=== PATIENT | male | born 1945 | race Two or more races ===

== ENCOUNTER 2020-11-23 09:31 | Inpatient (IN) | payer MEDICARE, OTHER ==
[~2020-11-23] VITALS: Ht 180.3 cm; Wt 84.7 kg
[2020-11-23] MEDS ORDERED: LORazepam 2MG/ML-1ML VIAL IM ONE (09:45)
[2020-11-23] MEDS ORDERED: HALOPERIDOL LACTATE 5 MG/ML INJ VIAL IM ONE ×2 (10:15→16:00)
[2020-11-23] MEDS ORDERED: diphenhdrAMINE HCL 50 MG/1 ML VL IM ONE ×2 (10:15→16:00)
[2020-11-23] MEDS ORDERED: SODIUM CHLORIDE 0.9% 1,000 ML IVB ONE (10:30)
[2020-11-23 11:18] LABS: Basophils # (auto) 0 10 ^3/uL (0-0.2); Basophils % (auto) 0.3 % (0.0-2.0); Eosinophils # (auto) 0 10 ^3/uL (0-0.8); Eosinophils % (auto) 0.4 % (0.0-7.0); Hematocrit 41.8 % (41.0-53.0); Hemoglobin 14.5 g/dL (13.5-17.5); Lymphocytes # (auto) 1.4 10 ^3/uL (0.4-5.4); Lymphocytes % (auto) 12.7 % (10.0-50.0); Mean Corpuscular Hemoglobin 32.4 pg (28.0-32.0); Mean Corpuscular Hgb Conc. 34.8 g/dL (32.0-36.0); Mean Corpuscular Volume 93.2 fL (80.0-100.0); Monocytes # (auto) 0.7 10 ^3/uL (0-1.3); Monocytes % (auto) 6.4 % (0.0-12.0); Neutrophils # (auto) 8.5 10 ^3/uL (1.6-8.6); Neutrophils % (auto) 80.2 % (37.0-80.0); Red Blood Cells 4.48 10^6/uL (4.5-5.90); Red Cell Distribution Width 13.9 % (11.8-14.3); White Blood Cell 10.6 10^3/uL (4.4-10.8)
[2020-11-23 11:28] LABS: Urine Bacteria NONE SEEN /hpf (None Seen); Urine Blood Negative /uL (Negative); Urine Hyaline Cast FEW /lpf (0 - 2); Urine Specific Gravity 1.008 (1.001-1.035); Urine WBC 2 /hpf (0 - 3)
[2020-11-23] MEDS ORDERED: LORazepam 2MG/ML-1ML VIAL IV ONE ×4 (11:30→20:00)
[2020-11-23 11:34] LABS: Albumin 3.3 g/dL (3.4-5.0); Anion Gap 9 (5-15); Blood Urea Nitrogen 8 mg/dL (7-18); Carbon Dioxide 20 mmol/L (21-32); Chloride 111 mmol/L (98-107); Glucose 91 mg/dL (74-106); Magnesium 2.3 mg/dL (1.6-2.6); Potassium 4.2 mmol/L (3.5-5.1); Sodium 140 mmol/L (136-145)
[2020-11-23 11:38] LABS: Amphetamine Screen, Urine NEGATIVE (NEGATIVE); Barbiturate Scree,Urine NEGATIVE (NEGATIVE); Benzodiazephine Screen, Urine NEGATIVE (NEGATIVE); Cannabinoid Screen, Urine NEGATIVE (NEGATIVE); Cocaine Screen, Urine NEGATIVE (NEGATIVE); Opiate Scree,Urine NEGATIVE (NEGATIVE); Phencyclidine Screen, Urine NEGATIVE (NEGATIVE)
[2020-11-23 11:40] LABS: Alanine Aminotransferase 25 U/L (16-61); Alkaline Phosphatase 95 U/L (45-117); Aspartate Aminotransferase 31 U/L (15-37); BUN/Creatinine Ratio 7.2; Bilirubin, Total 0.3 mg/dL (0.2-1.0); GFR African American 84 mL/min; GFR Non-African American 69 mL/min
[2020-11-23 11:55] LABS: Lactic Acid w/Reflex 4.7 mmol/L (0.4-2.0)
[2020-11-23] MEDS ORDERED: FOLIC ACID 1 MG, MULTIPLE VITAMIN 10 ML, MAGNESIUM SULF SDV 50% 8 MEQ, THIAMINE INJ 100... INJ SCH ×5 (12:00)
[2020-11-23] MEDS ORDERED: LORazepam MDV 2MG/ML 50 MG in SODIUM CHL 0.9% 25 ML IV ONE ×2 (18:00→22:00)
[2020-11-23] MEDS ORDERED: LORazepam 2MG/ML-1ML VIAL ONE ×2 (18:17→19:29)
[2020-11-23] MEDS ORDERED: cefTRIAXone 1GM/50ML D5W 50 ML IV ONE (18:30)
[2020-11-23] MEDS ORDERED: diazePAM 5 MG TAB PO ONE ×2 (20:30→20:45)
[2020-11-23] MEDS: LORazepam 2MG/ML-1ML VIAL IV SCH ×2 (20:49→22:00)
[2020-11-23] MEDS: ETOMIDATE (2MG/ML) 20ML VIAL IV PRN ×2 (21:26→21:35)
[2020-11-23] MEDS ORDERED: ROCURONIUM 10MG/ML 10ML VIAL IV ONE ×2 (21:56→22:00)
[2020-11-23] MEDS ORDERED: ETOMIDATE (2MG/ML) 20ML VIAL IV ONE ×2 (21:56→22:00)
[2020-11-23 22:51] VITALS: BP 144/93
[2020-11-23] MEDS ORDERED: ONDANSETRON HCL 4 MG/2 ML VIAL IV PRN (23:00)
[2020-11-23] MEDS ORDERED: SODIUM CHLORIDE 0.9% 1,000 ML IV SCH (23:00)
[2020-11-23] MEDS ORDERED: MORPHINE SULF INJ 2 MG/ML SYRINGE 1ML IV PRN (23:00)
[2020-11-23] MEDS ORDERED: DexAMETHasone SOD PHOS 10MG/1ML VIAL INJ IV ONE (23:00)
[2020-11-23] MEDS ORDERED: NITROGLYCERIN 0.4 MG SL TAB SL PRN (23:00)
[2020-11-23] MEDS ORDERED: AZITHROMYCIN 500MG/ 250ML 250 ML IV ONE (23:00)
[2020-11-23] MEDS ORDERED: PROPOFOL 100 ML IV ONE (23:08)
[2020-11-23] MEDS: PROPOFOL 100 ML IV SCH (23:12)
[2020-11-23 23:13] VITALS: BP 144/93
[2020-11-23 23:49] VITALS: BP 116/93
[2020-11-24] VITALS (89 sets, daily range): BP systolic 54–286; BP diastolic 28–118
[2020-11-24] MEDS ORDERED: ENOXAPARIN SOD 100 MG/1 ML SYRINGE SC ONE (03:45)
[2020-11-24] MEDS ORDERED: ALBUMIN 5% 250 ML IV ONE (03:45)
[2020-11-24] MEDS ORDERED: fentaNYL Drip 2500mCg/250mlNS 250 ML IV ONE (05:17)
[2020-11-24] MEDS ORDERED: SODIUM BICARBONATE 8.4 % INJ 50ML VIAL IV ONE (05:30)
[2020-11-24] MEDS: fentaNYL Drip 2500mCg/250mlNS 250 ML IV SCH (06:14)
[2020-11-24] MEDS ORDERED: MIDAZOLAM DRIP 50 mg/50mL 50 ML IV ONE (06:25)
[2020-11-24] MEDS: MIDAZOLAM DRIP 50 mg/50mL 50 ML IV SCH (06:41)
[2020-11-24] MEDS: LABETALOL HCL 5 MG/ML 4ML SYRINGE IV PRN (08:13)
[2020-11-24 08:30] LABS: Hemoglobin 15.4 g/dL (13.5-17.5); Mean Corpuscular Hemoglobin 31.4 pg (28.0-32.0); Mean Corpuscular Hgb Conc. 32.8 g/dL (32.0-36.0); Mean Corpuscular Volume 95.7 fL (80.0-100.0); Red Blood Cells 4.91 10^6/uL (4.5-5.90); Red Cell Distribution Width 14.4 % (11.8-14.3); White Blood Cell 20.7 10^3/uL (4.4-10.8)
[2020-11-24 08:36] LABS: Basophils % (manual) 0 (0.0-2.0); Blast Cells 0; Eosinophils % (manual) 0 (0-7); Metamyelocytes % 0; Myelocytes % 0; Promyelocytes % 0; Reactive Lymphocytes 0
[2020-11-24 08:41] LABS: Alanine Aminotransferase 40 U/L (16-61); Albumin 2.7 g/dL (3.4-5.0); Anion Gap 9 (5-15); Aspartate Aminotransferase 109 U/L (15-37); Blood Urea Nitrogen 16 mg/dL (7-18); Calcium 7.3 mg/dL (8.5-10.1); Carbon Dioxide 18 mmol/L (21-32); Chloride 115 mmol/L (98-107); GFR African American 49 mL/min; GFR Non-African American 40 mL/min; Glucose 161 mg/dL (74-106); Potassium 4.7 mmol/L (3.5-5.1); Sodium 142 mmol/L (136-145)
[2020-11-24 08:44] LABS: Alkaline Phosphatase 108 U/L (45-117); Bilirubin, Total 0.7 mg/dL (0.2-1.0); Total Protein 6.6 g/dL (6.4-8.2)
[2020-11-24 09:02] LABS: Band Neutrophils % (manual) 5; Lymphocytes % (manual) 8 (10.0-50.0); Monocytes % (manual) 9 (0-12)
[2020-11-24] MEDS ORDERED: DexAMETHasone SOD PHOS 10MG/1ML VIAL INJ IV SCH (10:00)
[2020-11-24] MEDS: PHENYLEPHRINE INJ 40 MG in SODIUM CHL 0.9% 246 ML IV SCH ×2 (10:20→15:06)
[2020-11-24] MEDS: ASPirin 81 mg TAB PO SCH (10:56)
[2020-11-24] MEDS: ENOXAPARIN SOD 40 MG/0.4 ML SYRINGE SC SCH (10:56)
[2020-11-24] MEDS: cefTRIAXone 1GM/50ML D5W 50 ML IV SCH (10:56)
[2020-11-24] MEDS: PANTOPRAZOLE 40 MG/10 ML VIAL INJ IV SCH (10:57)
[2020-11-24 12:03] LABS: Thyroid Stimulating Hormone 1.23 uIU/mL (0.358-3.74)
[2020-11-24] MEDS: SODIUM BICARBONATE 50ML VIAL 150 ML in D5W 5% 1,000 ML IV SCH (13:26)
[2020-11-24] MEDS: PROPOFOL 100 ML IV SCH ×2 (15:05→22:21)
[2020-11-24] MEDS: FOLIC ACID 1 MG, MULTIPLE VITAMIN 10 ML, MAGNESIUM SULF SDV 50% 8 MEQ, THIAMINE INJ 100... INJ SCH ×5 (16:00)
[2020-11-24 16:21] LABS: Protein, Urine 101.4 mg/dL (0.0-11.9)
[2020-11-24 16:29] LABS: Lactic Acid w/Reflex 3.5 mmol/L (0.4-2.0)
[2020-11-24] MEDS ORDERED: OPTISON 3ml Vial for INJ IV ONE (18:18)
[2020-11-24] MEDS: PHENYLEPHRINE INJ 80 MG in SODIUM CHL 0.9% 242 ML IV SCH (19:30)
[2020-11-24] MEDS: AZITHROMYCIN 500MG/ 250ML 250 ML IV SCH (22:10)
[2020-11-24] MEDS: MUPIROCIN 2% OINT 15gm or 22gm EACHNOSTRI SCH (22:10)
[2020-11-25] VITALS (108 sets, daily range): BP systolic 88–174; BP diastolic 58–126
[2020-11-25] MEDS: ACETAMINOPHEN 325 MG TAB PO PRN (01:53)
[2020-11-25] MEDS: SODIUM BICARBONATE 50ML VIAL 150 ML in D5W 5% 1,000 ML IV SCH ×2 (01:59→09:30)
[2020-11-25 04:03] LABS: Basophils # (auto) 0.1 10 ^3/uL (0-0.2); Basophils % (auto) 0.3 % (0.0-2.0); Eosinophils # (auto) 0 10 ^3/uL (0-0.8); Hematocrit 39.4 % (41.0-53.0); Hemoglobin 13.6 g/dL (13.5-17.5); Lymphocytes # (auto) 1.1 10 ^3/uL (0.4-5.4); Lymphocytes % (auto) 5.8 % (10.0-50.0); Mean Corpuscular Hemoglobin 31.9 pg (28.0-32.0); Mean Corpuscular Hgb Conc. 34.4 g/dL (32.0-36.0); Mean Corpuscular Volume 92.9 fL (80.0-100.0); Monocytes # (auto) 1.7 10 ^3/uL (0-1.3); Monocytes % (auto) 9.2 % (0.0-12.0); Neutrophils # (auto) 15.6 10 ^3/uL (1.6-8.6); Neutrophils % (auto) 84.7 % (37.0-80.0); Red Blood Cells 4.25 10^6/uL (4.5-5.90); Red Cell Distribution Width 14.2 % (11.8-14.3); White Blood Cell 18.4 10^3/uL (4.4-10.8)
[2020-11-25 04:21] LABS: Potassium 4.3 mmol/L (3.5-5.1)
[2020-11-25 04:27] LABS: Albumin 2.6 g/dL (3.4-5.0); Bilirubin, Total 0.5 mg/dL (0.2-1.0); Magnesium 2.8 mg/dL (1.6-2.6); Phosphorus 2.4 mg/dL (2.5-4.90); Total Protein 6.1 g/dL (6.4-8.2)
[2020-11-25] MEDS: PHENYLEPHRINE INJ 80 MG in SODIUM CHL 0.9% 242 ML IV SCH (05:00)
[2020-11-25] MEDS: fentaNYL Drip 2500mCg/250mlNS 250 ML IV SCH ×2 (05:45→22:24)
[2020-11-25] MEDS: PROPOFOL 100 ML IV SCH ×2 (06:30→22:23)
[2020-11-25] MEDS: MIDAZOLAM DRIP 50 mg/50mL 50 ML IV SCH (06:30)
[2020-11-25] MEDS: cefTRIAXone 1GM/50ML D5W 50 ML IV SCH (08:33)
[2020-11-25] MEDS: PANTOPRAZOLE 40 MG/10 ML VIAL INJ IV SCH (10:35)
[2020-11-25] MEDS: MUPIROCIN 2% OINT 15gm or 22gm EACHNOSTRI SCH ×2 (10:35→22:21)
[2020-11-25] MEDS: ENOXAPARIN SOD 40 MG/0.4 ML SYRINGE SC SCH (10:35)
[2020-11-25] MEDS: ASPirin 81 mg TAB PO SCH (10:35)
[2020-11-25] MEDS: FOLIC ACID 1 MG, MULTIPLE VITAMIN 10 ML, MAGNESIUM SULF SDV 50% 8 MEQ, THIAMINE INJ 100... INJ SCH ×5 (12:07)
[2020-11-25 12:20] LABS: Lactic Acid w/Reflex 2.3 mmol/L (0.4-2.0)
[2020-11-25] MEDS: NOREPINEPHRINE 8 MG/250ML KIT 250 ML IV SCH ×2 (15:55→22:22)
[2020-11-25] MEDS: AZITHROMYCIN 500MG/ 250ML 250 ML IV SCH (22:21)
[2020-11-26] VITALS (104 sets, daily range): BP systolic 85–186; BP diastolic 53–126
[2020-11-26] MEDS: PROPOFOL 100 ML IV SCH ×3 (01:34→19:05)
[2020-11-26 04:55] LABS: Albumin 2.3 g/dL (3.4-5.0); Potassium 4.1 mmol/L (3.5-5.1)
[2020-11-26 05:07] LABS: Cholesterol 117 mg/dL (< 200); HDL Cholesterol 54 mg/dL (40-59); LDL Cholesterol 51 mg/dL (< 100); Triglycerides 117 mg/dL (< 150)
[2020-11-26 05:09] LABS: BUN/Creatinine Ratio 23.5; Bilirubin, Total 0.4 mg/dL (0.2-1.0); Total Protein 5.8 g/dL (6.4-8.2)
[2020-11-26] MEDS: MIDAZOLAM DRIP 50 mg/50mL 50 ML IV SCH (06:30)
[2020-11-26] MEDS: cefTRIAXone 1GM/50ML D5W 50 ML IV SCH (09:03)
[2020-11-26] MEDS: ASPirin 81 mg TAB PO SCH (10:16)
[2020-11-26] MEDS: ENOXAPARIN SOD 40 MG/0.4 ML SYRINGE SC SCH (10:17)
[2020-11-26] MEDS: MUPIROCIN 2% OINT 15gm or 22gm EACHNOSTRI SCH ×2 (10:17→22:07)
[2020-11-26] MEDS: PANTOPRAZOLE 40 MG/10 ML VIAL INJ IV SCH (10:17)
[2020-11-26] MEDS: FOLIC ACID 1 MG, MULTIPLE VITAMIN 10 ML, MAGNESIUM SULF SDV 50% 8 MEQ, THIAMINE INJ 100... INJ SCH ×5 (12:53)
[2020-11-26] MEDS: SOD CHL 0.45% 1,000 ML IV SCH (13:08)
[2020-11-26] MEDS: LINEZOLID 600MG/300ML 300 ML IV SCH ×2 (13:08→22:08)
[2020-11-26] MEDS: PHENYLEPHRINE INJ 80 MG in SODIUM CHL 0.9% 242 ML IV SCH (15:45)
[2020-11-26] MEDS: MEROPENEM 1GM IVPB 100 ML IV SCH ×2 (16:44→22:07)
[2020-11-26] MEDS ORDERED: HYDR-4924 PO (17:49)
[2020-11-26] MEDS ORDERED: GABA-339 PO (17:49)
[2020-11-26] MEDS ORDERED: BUPR100T14 PO (17:49)
[2020-11-26] MEDS ORDERED: MELA3TAB27 PO (17:49)
[2020-11-26] MEDS ORDERED: CHOL1TAB30 PO (17:49)
[2020-11-26] MEDS ORDERED: TRAZ100T3 PO (17:49)
[2020-11-26] MEDS: AZITHROMYCIN 500MG/ 250ML 250 ML IV SCH (18:47)
[2020-11-26] MEDS: chlordiazePOXIDE HCL 25 MG CAP PO PRN (20:27)
[2020-11-26] MEDS: fentaNYL Drip 2500mCg/250mlNS 250 ML IV SCH (22:08)
[2020-11-27] VITALS (100 sets, daily range): BP systolic 68–204; BP diastolic 34–127
[2020-11-27] MEDS: SOD CHL 0.45% 1,000 ML IV SCH (03:55)
[2020-11-27] MEDS: chlordiazePOXIDE HCL 25 MG CAP PO PRN ×3 (04:25→22:50)
[2020-11-27 04:36] LABS: Basophils # (auto) 0.1 10 ^3/uL (0-0.2); Basophils % (auto) 0.6 % (0.0-2.0); Eosinophils # (auto) 0 10 ^3/uL (0-0.8); Eosinophils % (auto) 0.4 % (0.0-7.0); Hematocrit 34.5 % (41.0-53.0); Hemoglobin 11.8 g/dL (13.5-17.5); Lymphocytes # (auto) 1.4 10 ^3/uL (0.4-5.4); Lymphocytes % (auto) 15.5 % (10.0-50.0); Mean Corpuscular Hemoglobin 31.7 pg (28.0-32.0); Mean Corpuscular Hgb Conc. 34.2 g/dL (32.0-36.0); Mean Corpuscular Volume 92.9 fL (80.0-100.0); Monocytes # (auto) 0.8 10 ^3/uL (0-1.3); Monocytes % (auto) 8.4 % (0.0-12.0); Neutrophils % (auto) 75.1 % (37.0-80.0); Red Blood Cells 3.71 10^6/uL (4.5-5.90); Red Cell Distribution Width 14.4 % (11.8-14.3); White Blood Cell 9.3 10^3/uL (4.4-10.8)
[2020-11-27 04:58] LABS: Potassium 3.7 mmol/L (3.5-5.1)
[2020-11-27 05:12] LABS: Albumin 2.2 g/dL (3.4-5.0); BUN/Creatinine Ratio 22.7; Bilirubin, Total 0.4 mg/dL (0.2-1.0); Calcium 7.1 mg/dL (8.5-10.1); Total Protein 5.4 g/dL (6.4-8.2)
[2020-11-27] MEDS: MEROPENEM 1GM IVPB 100 ML IV SCH ×2 (06:17→13:44)
[2020-11-27] MEDS: PROPOFOL 100 ML IV SCH ×4 (06:18→21:00)
[2020-11-27] MEDS: MIDAZOLAM DRIP 50 mg/50mL 50 ML IV SCH (06:30)
[2020-11-27] MEDS: ENOXAPARIN SOD 40 MG/0.4 ML SYRINGE SC SCH (10:04)
[2020-11-27] MEDS: PANTOPRAZOLE 40 MG/10 ML VIAL INJ IV SCH (10:04)
[2020-11-27] MEDS: ASPirin 81 mg TAB PO SCH (10:05)
[2020-11-27] MEDS: MUPIROCIN 2% OINT 15gm or 22gm EACHNOSTRI SCH (10:05)
[2020-11-27] MEDS: LINEZOLID 600MG/300ML 300 ML IV SCH (10:05)
[2020-11-27] MEDS: NOREPINEPHRINE 8 MG/250ML KIT 250 ML IV SCH ×2 (11:30→23:50)
[2020-11-27] MEDS: FOLIC ACID 1 MG, MULTIPLE VITAMIN 10 ML, MAGNESIUM SULF SDV 50% 8 MEQ, THIAMINE INJ 100... INJ SCH ×5 (12:21)
[2020-11-27] MEDS ORDERED: ENOXAPARIN SOD 30 MG/0.3 ML SYRINGE SC ONE (14:45)
[2020-11-27] MEDS: PHENYLEPHRINE INJ 80 MG in SODIUM CHL 0.9% 242 ML IV SCH (15:45)
[2020-11-27] MEDS: AZITHROMYCIN 500MG/ 250ML 250 ML IV SCH (17:28)
[2020-11-27] MEDS ORDERED: IOHEXOL 350 MG/ML 100ML IJ ONE (21:12)
[2020-11-27] MEDS: fentaNYL Drip 2500mCg/250mlNS 250 ML IV SCH (22:00)
[2020-11-27] MEDS: LABETALOL HCL 5 MG/ML 4ML SYRINGE IV PRN (23:00)
[2020-11-27] MEDS: ACETAMINOPHEN 325 MG TAB PO PRN (23:32)
[2020-11-28] VITALS (94 sets, daily range): BP systolic 71–204; BP diastolic 35–125
[2020-11-28] MEDS: MUPIROCIN 2% OINT 15gm or 22gm EACHNOSTRI SCH ×3 (00:23→22:00)
[2020-11-28] MEDS: SOD CHL 0.45% 1,000 ML IV SCH ×2 (00:23→13:16)
[2020-11-28] MEDS: MEROPENEM 1GM IVPB 100 ML IV SCH ×4 (00:24→21:30)
[2020-11-28] MEDS: LINEZOLID 600MG/300ML 300 ML IV SCH ×2 (00:24→10:28)
[2020-11-28] MEDS: ENOXAPARIN SOD 80 MG/0.8ML SYRINGE SC SCH ×2 (00:25→10:53)
[2020-11-28] MEDS: PROPOFOL 100 ML IV SCH ×3 (03:22→16:58)
[2020-11-28 06:19] LABS: Basophils # (auto) 0.1 10 ^3/uL (0-0.2); Basophils % (auto) 0.8 % (0.0-2.0); Eosinophils # (auto) 0.2 10 ^3/uL (0-0.8); Eosinophils % (auto) 2.3 % (0.0-7.0); Hematocrit 34.8 % (41.0-53.0); Hemoglobin 11.9 g/dL (13.5-17.5); Lymphocytes # (auto) 1.5 10 ^3/uL (0.4-5.4); Lymphocytes % (auto) 17.8 % (10.0-50.0); Mean Corpuscular Hemoglobin 31.7 pg (28.0-32.0); Mean Corpuscular Hgb Conc. 34.3 g/dL (32.0-36.0); Mean Corpuscular Volume 92.2 fL (80.0-100.0); Monocytes # (auto) 0.8 10 ^3/uL (0-1.3); Monocytes % (auto) 9.6 % (0.0-12.0); Neutrophils % (auto) 69.5 % (37.0-80.0); Nucleated Red Blood Cells % 0.1 %; Red Blood Cells 3.77 10^6/uL (4.5-5.90); White Blood Cell 8.7 10^3/uL (4.4-10.8)
[2020-11-28 06:41] LABS: Potassium 3.4 mmol/L (3.5-5.1)
[2020-11-28 06:57] LABS: BUN/Creatinine Ratio 18.4; Bilirubin, Total 0.4 mg/dL (0.2-1.0); Calcium 7.4 mg/dL (8.5-10.1); Total Protein 5.3 g/dL (6.4-8.2)
[2020-11-28] MEDS: LABETALOL HCL 5 MG/ML 4ML SYRINGE IV PRN (10:23)
[2020-11-28] MEDS: chlordiazePOXIDE HCL 25 MG CAP PO PRN ×2 (10:24→16:59)
[2020-11-28] MEDS: PANTOPRAZOLE 40 MG/10 ML VIAL INJ IV SCH (10:24)
[2020-11-28] MEDS ORDERED: POTASSIUM CHLORIDE 20 MEQ, LIDOCAINE 1% (LOCAL ANESTH.) 2 ML in SODIUM CHL 0.9% 100 ML IV ONE (10:45)
[2020-11-28] MEDS: MIDAZOLAM DRIP 50 mg/50mL 50 ML IV SCH (10:46)
[2020-11-28] MEDS: ASPirin 81 mg TAB PO SCH (10:53)
[2020-11-28] MEDS: FOLIC ACID 1 MG, MULTIPLE VITAMIN 10 ML, MAGNESIUM SULF SDV 50% 8 MEQ, THIAMINE INJ 100... INJ SCH ×5 (12:22)
[2020-11-28] MEDS: NOREPINEPHRINE 8 MG/250ML KIT 250 ML IV SCH (13:00)
[2020-11-28] MEDS: PHENYLEPHRINE INJ 80 MG in SODIUM CHL 0.9% 242 ML IV SCH (13:15)
[2020-11-28] MEDS: AZITHROMYCIN 500MG/ 250ML 250 ML IV SCH (17:21)
[2020-11-29] VITALS (94 sets, daily range): BP systolic 77–209; BP diastolic 36–123
[2020-11-29] MEDS: LINEZOLID 600MG/300ML 300 ML IV SCH ×2 (00:41→09:34)
[2020-11-29] MEDS: ENOXAPARIN SOD 80 MG/0.8ML SYRINGE SC SCH ×3 (00:42→21:58)
[2020-11-29] MEDS: SOD CHL 0.45% 1,000 ML IV SCH (06:06)
[2020-11-29] MEDS: MEROPENEM 1GM IVPB 100 ML IV SCH ×3 (06:07→21:58)
[2020-11-29 07:38] LABS: Basophils # (auto) 0 10 ^3/uL (0-0.2); Basophils % (auto) 0.3 % (0.0-2.0); Eosinophils # (auto) 0.2 10 ^3/uL (0-0.8); Eosinophils % (auto) 2.1 % (0.0-7.0); Hematocrit 43.1 % (41.0-53.0); Hemoglobin 14.7 g/dL (13.5-17.5); Lymphocytes % (auto) 11.8 % (10.0-50.0); Mean Corpuscular Hemoglobin 31.6 pg (28.0-32.0); Monocytes # (auto) 0.9 10 ^3/uL (0-1.3); Monocytes % (auto) 10.1 % (0.0-12.0); Neutrophils # (auto) 6.6 10 ^3/uL (1.6-8.6); Neutrophils % (auto) 75.7 % (37.0-80.0); Nucleated Red Blood Cells % 0.3 %; Red Blood Cells 4.64 10^6/uL (4.5-5.90); Red Cell Distribution Width 14.1 % (11.8-14.3); White Blood Cell 8.7 10^3/uL (4.4-10.8)
[2020-11-29] MEDS: MIDAZOLAM DRIP 50 mg/50mL 50 ML IV SCH (09:29)
[2020-11-29] MEDS: PANTOPRAZOLE 40 MG/10 ML VIAL INJ IV SCH (09:34)
[2020-11-29] MEDS: ASPirin 81 mg TAB PO SCH (09:34)
[2020-11-29] MEDS: PROPOFOL 100 ML IV SCH (09:34)
[2020-11-29] MEDS: chlordiazePOXIDE HCL 25 MG CAP PO PRN (09:35)
[2020-11-29] MEDS: fentaNYL Drip 2500mCg/250mlNS 250 ML IV SCH (09:41)
[2020-11-29 10:17] LABS: Albumin 1.9 g/dL (3.4-5.0); Magnesium 2.4 mg/dL (1.6-2.6); Potassium 3.7 mmol/L (3.5-5.1)
[2020-11-29 10:21] LABS: BUN/Creatinine Ratio 17.6; Bilirubin, Total 0.5 mg/dL (0.2-1.0); Total Protein 5.3 g/dL (6.4-8.2)
[2020-11-29] MEDS: MUPIROCIN 2% OINT 15gm or 22gm EACHNOSTRI SCH (10:27)
[2020-11-29] MEDS ORDERED: ALBUMIN 25% 100 ML IV ONE (10:45)
[2020-11-29] MEDS ORDERED: FUROSEMIDE 40 MG/4 ML VIAL IV ONE (10:45)
[2020-11-29] MEDS: FOLIC ACID 1 MG, MULTIPLE VITAMIN 10 ML, MAGNESIUM SULF SDV 50% 8 MEQ, THIAMINE INJ 100... INJ SCH ×5 (12:00)
[2020-11-29] MEDS ORDERED: hydrALAZINE HCL 20 MG/ML VL IV PRN (12:00)
[2020-11-29] MEDS: PHENYLEPHRINE INJ 80 MG in SODIUM CHL 0.9% 242 ML IV SCH (13:59)
[2020-11-29] MEDS: DOPamine 1600MCG/ML D5W 250 ML IV SCH (15:15)
[2020-11-29] MEDS: AZITHROMYCIN 500MG/ 250ML 250 ML IV SCH (17:51)
[2020-11-30] VITALS (87 sets, daily range): BP systolic 84–178; BP diastolic 36–107
[2020-11-30] MEDS: LINEZOLID 600MG/300ML 300 ML IV SCH ×2 (01:15→10:28)
[2020-11-30 04:55] LABS: Albumin 2.2 g/dL (3.4-5.0); Calcium 8.2 mg/dL (8.5-10.1); Potassium 3.5 mmol/L (3.5-5.1)
[2020-11-30 04:58] LABS: BUN/Creatinine Ratio 20.6; Bilirubin, Total 0.4 mg/dL (0.2-1.0); Total Protein 5.8 g/dL (6.4-8.2)
[2020-11-30] MEDS: MEROPENEM 1GM IVPB 100 ML IV SCH ×2 (06:00→14:49)
[2020-11-30] MEDS: DOPamine 1600MCG/ML D5W 250 ML IV SCH ×2 (07:36→16:29)
[2020-11-30] MEDS: MIDAZOLAM DRIP 50 mg/50mL 50 ML IV SCH (07:42)
[2020-11-30] MEDS: ENOXAPARIN SOD 80 MG/0.8ML SYRINGE SC SCH ×2 (10:29→22:25)
[2020-11-30] MEDS: ASPirin 81 mg TAB PO SCH (10:29)
[2020-11-30] MEDS: FUROSEMIDE 40 MG/4 ML VIAL IV SCH (10:29)
[2020-11-30] MEDS: PANTOPRAZOLE 40 MG/10 ML VIAL INJ IV SCH (10:29)
[2020-11-30] MEDS: NOREPINEPHRINE 8 MG/250ML KIT 250 ML IV SCH (11:30)
[2020-11-30] MEDS ORDERED: fentaNYL Drip 2500mCg/250mlNS 250 ML IV ONE (12:17)
[2020-11-30] MEDS: fentaNYL Drip 2500mCg/250mlNS 250 ML IV SCH (12:22)
[2020-11-30] MEDS: FOLIC ACID 1 MG, MULTIPLE VITAMIN 10 ML, MAGNESIUM SULF SDV 50% 8 MEQ, THIAMINE INJ 100... INJ SCH ×5 (12:26)
[2020-11-30] MEDS: Jevity 1.2 Cal/Fiber 1 Liter GT SCH (14:36)
[2020-11-30] MEDS: PHENYLEPHRINE INJ 80 MG in SODIUM CHL 0.9% 242 ML IV SCH (15:45)
[2020-11-30] MEDS: AZITHROMYCIN 500MG/ 250ML 250 ML IV SCH (19:18)
[2020-12-01] VITALS (90 sets, daily range): BP systolic 77–215; BP diastolic 8–123
[2020-12-01] MEDS: fentaNYL Drip 2500mCg/250mlNS 250 ML IV SCH ×2 (00:32→13:13)
[2020-12-01 04:35] LABS: Basophils # (auto) 0 10 ^3/uL (0-0.2); Basophils % (auto) 0.3 % (0.0-2.0); Eosinophils # (auto) 0.1 10 ^3/uL (0-0.8); Eosinophils % (auto) 1.6 % (0.0-7.0); Hematocrit 35.9 % (41.0-53.0); Hemoglobin 12.8 g/dL (13.5-17.5); Lymphocytes # (auto) 0.9 10 ^3/uL (0.4-5.4); Lymphocytes % (auto) 10.5 % (10.0-50.0); Mean Corpuscular Hemoglobin 32.3 pg (28.0-32.0); Mean Corpuscular Hgb Conc. 35.7 g/dL (32.0-36.0); Mean Corpuscular Volume 90.4 fL (80.0-100.0); Monocytes # (auto) 0.9 10 ^3/uL (0-1.3); Monocytes % (auto) 10.3 % (0.0-12.0); Neutrophils # (auto) 6.7 10 ^3/uL (1.6-8.6); Neutrophils % (auto) 77.3 % (37.0-80.0); Red Blood Cells 3.97 10^6/uL (4.5-5.90); Red Cell Distribution Width 13.4 % (11.8-14.3); White Blood Cell 8.7 10^3/uL (4.4-10.8)
[2020-12-01 04:46] LABS: Calcium 8.2 mg/dL (8.5-10.1); Potassium 3.5 mmol/L (3.5-5.1)
[2020-12-01 04:49] LABS: BUN/Creatinine Ratio 24.2
[2020-12-01 05:04] LABS: Bilirubin, Total 0.3 mg/dL (0.2-1.0); Total Protein 6.1 g/dL (6.4-8.2)
[2020-12-01] MEDS: levoFLOXacin 750MG 150 ML IV SCH (09:22)
[2020-12-01] MEDS: ENOXAPARIN SOD 80 MG/0.8ML SYRINGE SC SCH ×2 (09:23→21:03)
[2020-12-01] MEDS: FUROSEMIDE 40 MG/4 ML VIAL IV SCH (09:23)
[2020-12-01] MEDS: PANTOPRAZOLE 40 MG/10 ML VIAL INJ IV SCH (09:23)
[2020-12-01] MEDS: NOREPINEPHRINE 8 MG/250ML KIT 250 ML IV SCH (11:30)
[2020-12-01] MEDS: FOLIC ACID 1 MG, MULTIPLE VITAMIN 10 ML, MAGNESIUM SULF SDV 50% 8 MEQ, THIAMINE INJ 100... INJ SCH ×5 (11:46)
[2020-12-01] MEDS: MIDAZOLAM DRIP 50 mg/50mL 50 ML IV SCH ×2 (13:10→17:59)
[2020-12-01] MEDS: PHENYLEPHRINE INJ 80 MG in SODIUM CHL 0.9% 242 ML IV SCH (15:45)
[2020-12-01] MEDS: PROPOFOL 100 ML IV SCH ×2 (16:27→23:13)
[2020-12-01] MEDS: DOPamine 1600MCG/ML D5W 250 ML IV SCH (21:16)
[2020-12-02] VITALS (104 sets, daily range): BP systolic 83–210; BP diastolic 36–102
[2020-12-02 04:55] LABS: Calcium 8.3 mg/dL (8.5-10.1); Potassium 3.3 mmol/L (3.5-5.1)
[2020-12-02 04:58] LABS: BUN/Creatinine Ratio 27.9; Bilirubin, Total 0.4 mg/dL (0.2-1.0); Total Protein 5.5 g/dL (6.4-8.2)
[2020-12-02] MEDS: POTASSIUM CHL 20MEQ/100ML 100 ML IV SCH ×3 (09:07→14:12)
[2020-12-02] MEDS: levoFLOXacin 750MG 150 ML IV SCH (09:07)
[2020-12-02] MEDS: PANTOPRAZOLE 40 MG/10 ML VIAL INJ IV SCH (09:08)
[2020-12-02] MEDS: FUROSEMIDE 40 MG/4 ML VIAL IV SCH (09:08)
[2020-12-02] MEDS: PHENYLEPHRINE INJ 40 MG in SODIUM CHL 0.9% 246 ML IV SCH ×2 (09:32→23:26)
[2020-12-02] MEDS: MIDAZOLAM DRIP 50 mg/50mL 50 ML IV SCH ×2 (10:57→18:15)
[2020-12-02] MEDS: chlordiazePOXIDE HCL 25 MG CAP PO SCH ×2 (11:13→17:25)
[2020-12-02] MEDS: FOLIC ACID 1 MG, MULTIPLE VITAMIN 10 ML, MAGNESIUM SULF SDV 50% 8 MEQ, THIAMINE INJ 100... INJ SCH ×5 (11:20)
[2020-12-02] MEDS: NOREPINEPHRINE 8 MG/250ML KIT 250 ML IV SCH (11:30)
[2020-12-02] MEDS: ENOXAPARIN SOD 80 MG/0.8ML SYRINGE SC SCH ×2 (13:40→21:14)
[2020-12-02] MEDS: fentaNYL Drip 2500mCg/250mlNS 250 ML IV SCH (14:12)
[2020-12-02] MEDS: PROPOFOL 100 ML IV SCH (17:25)
[2020-12-02] MEDS: DOPamine 1600MCG/ML D5W 250 ML IV SCH (18:24)
[2020-12-03] VITALS (86 sets, daily range): BP systolic 49–200; BP diastolic 24–124
[2020-12-03 04:29] LABS: Basophils # (auto) 0 10 ^3/uL (0-0.2); Basophils % (auto) 0.5 % (0.0-2.0); Eosinophils # (auto) 0.2 10 ^3/uL (0-0.8); Eosinophils % (auto) 3.5 % (0.0-7.0); Hematocrit 32.1 % (41.0-53.0); Hemoglobin 11.2 g/dL (13.5-17.5); Lymphocytes % (auto) 16.5 % (10.0-50.0); Mean Corpuscular Hemoglobin 31.9 pg (28.0-32.0); Mean Corpuscular Volume 91.3 fL (80.0-100.0); Monocytes # (auto) 0.9 10 ^3/uL (0-1.3); Monocytes % (auto) 14.1 % (0.0-12.0); Neutrophils # (auto) 4.1 10 ^3/uL (1.6-8.6); Neutrophils % (auto) 65.4 % (37.0-80.0); Red Blood Cells 3.52 10^6/uL (4.5-5.90); Red Cell Distribution Width 13.7 % (11.8-14.3); White Blood Cell 6.2 10^3/uL (4.4-10.8)
[2020-12-03 04:45] LABS: BUN/Creatinine Ratio 25.6; Calcium 8.2 mg/dL (8.5-10.1); Magnesium 2.1 mg/dL (1.6-2.6); Phosphorus 2.8 mg/dL (2.5-4.90); Potassium 3.4 mmol/L (3.5-5.1)
[2020-12-03] MEDS ORDERED: MAGNESIUM SULFATE 1GM/100ML 100 ML IV ONE (09:30)
[2020-12-03] MEDS: LABETALOL HCL 5 MG/ML 4ML SYRINGE IV PRN (09:34)
[2020-12-03] MEDS: FUROSEMIDE 40 MG/4 ML VIAL IV SCH (09:42)
[2020-12-03] MEDS: POTASSIUM CHL 20MEQ/100ML 100 ML IV SCH ×2 (09:46→10:39)
[2020-12-03] MEDS: levoFLOXacin 750MG 150 ML IV SCH (09:50)
[2020-12-03] MEDS: PANTOPRAZOLE 40 MG/10 ML VIAL INJ IV SCH (09:54)
[2020-12-03] MEDS: ENOXAPARIN SOD 80 MG/0.8ML SYRINGE SC SCH ×2 (09:56→22:14)
[2020-12-03] MEDS ORDERED: METOPROLOL TARTRATE 1MG/1ML-5ML VIAL IV ONE (11:00)
[2020-12-03] MEDS ORDERED: LABETALOL HCL 200 MG TAB PO ONE (11:00)
[2020-12-03] MEDS ORDERED: cloNIDine HCL 0.1 MG TAB PO ONE (11:00)
[2020-12-03] MEDS: NOREPINEPHRINE 8 MG/250ML KIT 250 ML IV SCH ×2 (11:30→13:43)
[2020-12-03] MEDS: FOLIC ACID 1 MG, MULTIPLE VITAMIN 10 ML, MAGNESIUM SULF SDV 50% 8 MEQ, THIAMINE INJ 100... INJ SCH ×5 (12:07)
[2020-12-03] MEDS: DOPamine 1600MCG/ML D5W 250 ML IV SCH (14:00)
[2020-12-03] MEDS: PHENYLEPHRINE INJ 40 MG in SODIUM CHL 0.9% 246 ML IV SCH (17:50)
[2020-12-03] MEDS: LABETALOL HCL 200 MG TAB PO SCH (22:00)
[2020-12-03] MEDS: PROPOFOL 100 ML IV SCH (22:15)
[2020-12-04] VITALS (101 sets, daily range): BP systolic 68–194; BP diastolic 31–119
[2020-12-04] MEDS: fentaNYL Drip 2500mCg/250mlNS 250 ML IV SCH ×2 (05:54→08:39)
[2020-12-04] MEDS: MIDAZOLAM DRIP 50 mg/50mL 50 ML IV SCH (06:01)
[2020-12-04 08:37] LABS: BUN/Creatinine Ratio 22.8; Calcium 8.1 mg/dL (8.5-10.1); Potassium 4.1 mmol/L (3.5-5.1)
[2020-12-04] MEDS: NOREPINEPHRINE 8 MG/250ML KIT 250 ML IV SCH (09:30)
[2020-12-04] MEDS: DOPamine 1600MCG/ML D5W 250 ML IV SCH ×2 (09:36→21:35)
[2020-12-04] MEDS: LABETALOL HCL 200 MG TAB PO SCH ×2 (10:00→21:33)
[2020-12-04] MEDS: PHENYLEPHRINE INJ 40 MG in SODIUM CHL 0.9% 246 ML IV SCH ×2 (10:30→21:35)
[2020-12-04] MEDS: PANTOPRAZOLE 40 MG/10 ML VIAL INJ IV SCH (10:33)
[2020-12-04] MEDS: levoFLOXacin 750MG 150 ML IV SCH (10:33)
[2020-12-04] MEDS: FUROSEMIDE 40 MG/4 ML VIAL IV SCH (10:33)
[2020-12-04] MEDS: ENOXAPARIN SOD 80 MG/0.8ML SYRINGE SC SCH ×2 (10:33→21:34)
[2020-12-04] MEDS: PROPOFOL 100 ML IV SCH ×2 (10:48→17:14)
[2020-12-04] MEDS: FOLIC ACID 1 MG, MULTIPLE VITAMIN 10 ML, MAGNESIUM SULF SDV 50% 8 MEQ, THIAMINE INJ 100... INJ SCH ×5 (12:39)
[2020-12-05] VITALS (96 sets, daily range): BP systolic 56–193; BP diastolic 31–98
[2020-12-05] MEDS: MIDAZOLAM DRIP 50 mg/50mL 50 ML IV SCH (06:30)
[2020-12-05] MEDS: FUROSEMIDE 40 MG/4 ML VIAL IV SCH (09:32)
[2020-12-05] MEDS: ENOXAPARIN SOD 80 MG/0.8ML SYRINGE SC SCH ×2 (09:33→21:47)
[2020-12-05] MEDS: PANTOPRAZOLE 40 MG/10 ML VIAL INJ IV SCH (09:34)
[2020-12-05] MEDS: levoFLOXacin 750MG 150 ML IV SCH (09:36)
[2020-12-05] MEDS: LABETALOL HCL 200 MG TAB PO SCH ×2 (09:38→21:49)
[2020-12-05] MEDS: fentaNYL Drip 2500mCg/250mlNS 250 ML IV SCH (09:40)
[2020-12-05] MEDS: NOREPINEPHRINE 8 MG/250ML KIT 250 ML IV SCH (09:50)
[2020-12-05] MEDS: FOLIC ACID 1 MG, MULTIPLE VITAMIN 10 ML, MAGNESIUM SULF SDV 50% 8 MEQ, THIAMINE INJ 100... INJ SCH ×5 (12:00)
[2020-12-05] MEDS: PHENYLEPHRINE INJ 40 MG in SODIUM CHL 0.9% 246 ML IV SCH (13:51)
[2020-12-05] MEDS ORDERED: BISACODYL 10 MG RECT SUPP PR PRN (15:15)
[2020-12-05] MEDS: PROPOFOL 100 ML IV SCH ×2 (15:31→21:47)
[2020-12-06] VITALS (96 sets, daily range): BP systolic 51–211; BP diastolic 18–166
[2020-12-06] MEDS: fentaNYL Drip 2500mCg/250mlNS 250 ML IV SCH ×2 (00:31→12:17)
[2020-12-06] MEDS: DOPamine 1600MCG/ML D5W 250 ML IV SCH ×2 (00:48→13:55)
[2020-12-06] MEDS: PROPOFOL 100 ML IV SCH ×4 (03:39→22:52)
[2020-12-06 03:52] LABS: Basophils # (auto) 0 10 ^3/uL (0-0.2); Basophils % (auto) 0.5 % (0.0-2.0); Eosinophils # (auto) 0.2 10 ^3/uL (0-0.8); Eosinophils % (auto) 2.5 % (0.0-7.0); Hematocrit 34.6 % (41.0-53.0); Hemoglobin 11.6 g/dL (13.5-17.5); Lymphocytes # (auto) 1.1 10 ^3/uL (0.4-5.4); Lymphocytes % (auto) 12.5 % (10.0-50.0); Mean Corpuscular Hemoglobin 30.7 pg (28.0-32.0); Mean Corpuscular Hgb Conc. 33.6 g/dL (32.0-36.0); Mean Corpuscular Volume 91.2 fL (80.0-100.0); Monocytes # (auto) 0.8 10 ^3/uL (0-1.3); Monocytes % (auto) 8.6 % (0.0-12.0); Neutrophils # (auto) 6.9 10 ^3/uL (1.6-8.6); Neutrophils % (auto) 75.9 % (37.0-80.0); Red Cell Distribution Width 13.7 % (11.8-14.3); White Blood Cell 9.1 10^3/uL (4.4-10.8)
[2020-12-06 04:11] LABS: Calcium 8.5 mg/dL (8.5-10.1)
[2020-12-06] MEDS: MIDAZOLAM DRIP 50 mg/50mL 50 ML IV SCH (06:25)
[2020-12-06] MEDS: ALBUTEROL SULF 2.5 MG/0.5ML(0.5%) NEB SOLN NEB PRN ×2 (06:30→11:59)
[2020-12-06] MEDS: NOREPINEPHRINE 8 MG/250ML KIT 250 ML IV SCH (09:27)
[2020-12-06] MEDS: PANTOPRAZOLE 40 MG/10 ML VIAL INJ IV SCH (09:29)
[2020-12-06] MEDS: levoFLOXacin 750MG 150 ML IV SCH (09:29)
[2020-12-06] MEDS: FUROSEMIDE 40 MG/4 ML VIAL IV SCH (09:29)
[2020-12-06] MEDS: LABETALOL HCL 200 MG TAB PO SCH ×2 (09:29→21:09)
[2020-12-06] MEDS: ENOXAPARIN SOD 80 MG/0.8ML SYRINGE SC SCH ×2 (09:30→21:08)
[2020-12-06] MEDS: PHENYLEPHRINE INJ 40 MG in SODIUM CHL 0.9% 246 ML IV SCH (12:30)
[2020-12-06] MEDS: FOLIC ACID 1 MG, MULTIPLE VITAMIN 10 ML, MAGNESIUM SULF SDV 50% 8 MEQ, THIAMINE INJ 100... INJ SCH ×5 (13:00)
[2020-12-06 14:28] LABS: INR 1.14 (0.9-1.15); Partial Thromboplastin Time 36.8 sec (23.0-31.2)
[2020-12-07] VITALS (103 sets, daily range): BP systolic 50–186; BP diastolic 26–107
[2020-12-07] MEDS: MIDAZOLAM DRIP 50 mg/50mL 50 ML IV SCH ×3 (01:07→23:54)
[2020-12-07] MEDS: fentaNYL Drip 2500mCg/250mlNS 250 ML IV SCH ×2 (01:25→13:14)
[2020-12-07] MEDS: PROPOFOL 100 ML IV SCH ×4 (02:58→19:05)
[2020-12-07 04:52] LABS: Basophils # (auto) 0.1 10 ^3/uL (0-0.2); Basophils % (auto) 0.9 % (0.0-2.0); Eosinophils # (auto) 0.2 10 ^3/uL (0-0.8); Eosinophils % (auto) 3.2 % (0.0-7.0); Hematocrit 33.3 % (41.0-53.0); Hemoglobin 11.5 g/dL (13.5-17.5); Lymphocytes # (auto) 1.1 10 ^3/uL (0.4-5.4); Lymphocytes % (auto) 18.7 % (10.0-50.0); Mean Corpuscular Hemoglobin 31.5 pg (28.0-32.0); Mean Corpuscular Hgb Conc. 34.4 g/dL (32.0-36.0); Mean Corpuscular Volume 91.5 fL (80.0-100.0); Monocytes # (auto) 0.6 10 ^3/uL (0-1.3); Monocytes % (auto) 10.2 % (0.0-12.0); Neutrophils # (auto) 4.1 10 ^3/uL (1.6-8.6); Nucleated Red Blood Cells % 0.1 %; Red Blood Cells 3.64 10^6/uL (4.5-5.90); Red Cell Distribution Width 13.8 % (11.8-14.3); White Blood Cell 6.1 10^3/uL (4.4-10.8)
[2020-12-07 05:09] LABS: BUN/Creatinine Ratio 18.9; Calcium 8.7 mg/dL (8.5-10.1); Potassium 3.7 mmol/L (3.5-5.1)
[2020-12-07] MEDS: PHENYLEPHRINE INJ 40 MG in SODIUM CHL 0.9% 246 ML IV SCH ×2 (05:10→12:29)
[2020-12-07] MEDS: NOREPINEPHRINE 8 MG/250ML KIT 250 ML IV SCH ×2 (05:51→22:30)
[2020-12-07] MEDS: LABETALOL HCL 200 MG TAB PO SCH ×2 (09:39→22:00)
[2020-12-07] MEDS: ENOXAPARIN SOD 80 MG/0.8ML SYRINGE SC SCH ×2 (09:40→22:30)
[2020-12-07] MEDS: levoFLOXacin 750MG 150 ML IV SCH (09:43)
[2020-12-07] MEDS: PANTOPRAZOLE 40 MG/10 ML VIAL INJ IV SCH (09:43)
[2020-12-07] MEDS: FUROSEMIDE 40 MG/4 ML VIAL IV SCH (11:47)
[2020-12-07] MEDS: FOLIC ACID 1 MG, MULTIPLE VITAMIN 10 ML, MAGNESIUM SULF SDV 50% 8 MEQ, THIAMINE INJ 100... INJ SCH ×5 (11:50)
[2020-12-07] MEDS: DOPamine 1600MCG/ML D5W 250 ML IV SCH ×2 (12:29→21:02)
[2020-12-08] VITALS (101 sets, daily range): BP systolic 72–131; BP diastolic 31–74
[2020-12-08] MEDS: PROPOFOL 100 ML IV SCH ×2 (02:02→06:03)
[2020-12-08] MEDS: fentaNYL Drip 2500mCg/250mlNS 250 ML IV SCH ×2 (02:03→14:09)
[2020-12-08 02:10] LABS: Basophils # (auto) 0.1 10 ^3/uL (0-0.2); Basophils % (auto) 0.6 % (0.0-2.0); Monocytes # (auto) 0.8 10 ^3/uL (0-1.3); Neutrophils # (auto) 7.1 10 ^3/uL (1.6-8.6); Neutrophils % (auto) 75.9 % (37.0-80.0); Red Blood Cells 3.71 10^6/uL (4.5-5.90); White Blood Cell 9.4 10^3/uL (4.4-10.8)
[2020-12-08 02:12] LABS: Eosinophils # (auto) 0.2 10 ^3/uL (0-0.8); Eosinophils % (auto) 2.5 % (0.0-7.0); Hematocrit 33.9 % (41.0-53.0); Hemoglobin 11.6 g/dL (13.5-17.5); Lymphocytes # (auto) 1.2 10 ^3/uL (0.4-5.4); Mean Corpuscular Hemoglobin 31.2 pg (28.0-32.0); Mean Corpuscular Hgb Conc. 34.2 g/dL (32.0-36.0); Mean Corpuscular Volume 91.3 fL (80.0-100.0); Nucleated Red Blood Cells % 0.1 %; Red Cell Distribution Width 13.5 % (11.8-14.3)
[2020-12-08 02:29] LABS: INR 1.06 (0.9-1.15); Partial Thromboplastin Time 31.2 sec (23.0-31.2)
[2020-12-08 02:33] LABS: Calcium 8.7 mg/dL (8.5-10.1); Potassium 3.5 mmol/L (3.5-5.1)
[2020-12-08] MEDS: MIDAZOLAM DRIP 50 mg/50mL 50 ML IV SCH ×2 (06:03→23:25)
[2020-12-08] MEDS: LABETALOL HCL 200 MG TAB PO SCH ×2 (10:00→21:39)
[2020-12-08] MEDS: levoFLOXacin 750MG 150 ML IV SCH ×2 (10:00→17:58)
[2020-12-08] MEDS: PHENYLEPHRINE INJ 40 MG in SODIUM CHL 0.9% 246 ML IV SCH (14:30)
[2020-12-08] MEDS: FUROSEMIDE 40 MG/4 ML VIAL IV SCH (17:54)
[2020-12-08] MEDS: PANTOPRAZOLE 40 MG/10 ML VIAL INJ IV SCH (17:57)
[2020-12-08] MEDS: ENOXAPARIN SOD 80 MG/0.8ML SYRINGE SC SCH ×2 (17:58→22:01)
[2020-12-08] MEDS: FOLIC ACID 1 MG, MULTIPLE VITAMIN 10 ML, MAGNESIUM SULF SDV 50% 8 MEQ, THIAMINE INJ 100... INJ SCH ×5 (18:01)
[2020-12-08] MEDS: ALBUTEROL SULF 2.5 MG/0.5ML(0.5%) NEB SOLN NEB PRN (19:02)
[2020-12-08] MEDS: NOREPINEPHRINE 8 MG/250ML KIT 250 ML IV SCH (21:50)
[2020-12-08] MEDS: traZODone HCL 50 MG TAB PO SCH (22:01)
[2020-12-08] MEDS: buPROPion HCL 100 MG TAB PO SCH (22:01)
[2020-12-09] VITALS (102 sets, daily range): BP systolic 86–140; BP diastolic 37–78
[2020-12-09] MEDS: PROPOFOL 100 ML IV SCH ×3 (00:26→16:17)
[2020-12-09] MEDS: fentaNYL Drip 2500mCg/250mlNS 250 ML IV SCH ×2 (00:27→11:05)
[2020-12-09 05:31] LABS: BUN/Creatinine Ratio 21.1; Calcium 8.4 mg/dL (8.5-10.1); Potassium 3.6 mmol/L (3.5-5.1)
[2020-12-09] MEDS: DOPamine 1600MCG/ML D5W 250 ML IV SCH ×2 (05:36→14:30)
[2020-12-09] MEDS: PHENYLEPHRINE INJ 40 MG in SODIUM CHL 0.9% 246 ML IV SCH ×2 (07:10→23:50)
[2020-12-09] MEDS: LABETALOL HCL 200 MG TAB PO SCH ×2 (10:46→22:00)
[2020-12-09] MEDS: FUROSEMIDE 40 MG/4 ML VIAL IV SCH (10:46)
[2020-12-09] MEDS: PANTOPRAZOLE 40 MG/10 ML VIAL INJ IV SCH (10:46)
[2020-12-09] MEDS: CHOLECALCIFEROL (VITD3) 1,000UNIT=25mCg TAB PO SCH (10:47)
[2020-12-09] MEDS: ENOXAPARIN SOD 80 MG/0.8ML SYRINGE SC SCH ×2 (10:47→22:11)
[2020-12-09] MEDS: buPROPion HCL 100 MG TAB PO SCH (10:47)
[2020-12-09] MEDS: MIDAZOLAM DRIP 50 mg/50mL 50 ML IV SCH ×2 (11:01→20:54)
[2020-12-09] MEDS: Jevity 1.2 Cal/Fiber 1 Liter GT SCH (11:13)
[2020-12-09] MEDS: FOLIC ACID 1 MG, MULTIPLE VITAMIN 10 ML, MAGNESIUM SULF SDV 50% 8 MEQ, THIAMINE INJ 100... INJ SCH ×5 (12:59)
[2020-12-09] MEDS: levoFLOXacin 750MG 150 ML IV SCH ×2 (17:31→17:44)
[2020-12-09] MEDS: traZODone HCL 50 MG TAB PO SCH (22:11)
[2020-12-09] MEDS: buPROPion HCL 75 MG TAB PO SCH (22:11)
[2020-12-10] VITALS (101 sets, daily range): BP systolic 84–171; BP diastolic 38–90
[2020-12-10 04:36] LABS: BUN/Creatinine Ratio 24.3; Calcium 8.7 mg/dL (8.5-10.1); Potassium 4.1 mmol/L (3.5-5.1)
[2020-12-10] MEDS: PROPOFOL 100 ML IV SCH ×2 (05:34→18:59)
[2020-12-10] MEDS: MIDAZOLAM DRIP 50 mg/50mL 50 ML IV SCH ×2 (05:36→21:22)
[2020-12-10] MEDS: NOREPINEPHRINE 8 MG/250ML KIT 250 ML IV SCH (09:30)
[2020-12-10] MEDS: LABETALOL HCL 200 MG TAB PO SCH ×2 (10:00→21:52)
[2020-12-10] MEDS: ENOXAPARIN SOD 80 MG/0.8ML SYRINGE SC SCH ×2 (10:57→22:02)
[2020-12-10] MEDS: PANTOPRAZOLE 40 MG/10 ML VIAL INJ IV SCH (10:57)
[2020-12-10] MEDS: FUROSEMIDE 40 MG/4 ML VIAL IV SCH (10:57)
[2020-12-10] MEDS: CHOLECALCIFEROL (VITD3) 1,000UNIT=25mCg TAB PO SCH (10:58)
[2020-12-10] MEDS: fentaNYL Drip 2500mCg/250mlNS 250 ML IV SCH ×2 (11:14→23:37)
[2020-12-10] MEDS ORDERED: PANTOPRAZOLE 40 MG TAB PO ONE (13:15)
[2020-12-10] MEDS: buPROPion HCL 75 MG TAB PO SCH ×2 (13:51→22:03)
[2020-12-10] MEDS: FOLIC ACID 1 MG, MULTIPLE VITAMIN 10 ML, MAGNESIUM SULF SDV 50% 8 MEQ, THIAMINE INJ 100... INJ SCH ×5 (13:52)
[2020-12-10] MEDS: PHENYLEPHRINE INJ 40 MG in SODIUM CHL 0.9% 246 ML IV SCH (16:30)
[2020-12-10] MEDS: traZODone HCL 50 MG TAB PO SCH (22:03)
[2020-12-10] MEDS: DOPamine 1600MCG/ML D5W 250 ML IV SCH (22:24)
[2020-12-10] MEDS: ALBUTEROL SULF 2.5 MG/0.5ML(0.5%) NEB SOLN NEB PRN (22:49)
[2020-12-11] VITALS (103 sets, daily range): BP systolic 70–181; BP diastolic 35–108
[2020-12-11] MEDS: PROPOFOL 100 ML IV SCH ×2 (00:19→22:31)
[2020-12-11 03:45] LABS: Basophils # (auto) 0 10 ^3/uL (0-0.2); Basophils % (auto) 0.7 % (0.0-2.0); Eosinophils # (auto) 0.3 10 ^3/uL (0-0.8); Eosinophils % (auto) 4.5 % (0.0-7.0); Hematocrit 34.8 % (41.0-53.0); Hemoglobin 11.7 g/dL (13.5-17.5); Lymphocytes # (auto) 1.3 10 ^3/uL (0.4-5.4); Lymphocytes % (auto) 22.1 % (10.0-50.0); Mean Corpuscular Hemoglobin 30.8 pg (28.0-32.0); Mean Corpuscular Hgb Conc. 33.7 g/dL (32.0-36.0); Mean Corpuscular Volume 91.3 fL (80.0-100.0); Monocytes # (auto) 0.7 10 ^3/uL (0-1.3); Monocytes % (auto) 11.4 % (0.0-12.0); Neutrophils # (auto) 3.6 10 ^3/uL (1.6-8.6); Neutrophils % (auto) 61.3 % (37.0-80.0); Nucleated Red Blood Cells % 0.2 %; Red Blood Cells 3.81 10^6/uL (4.5-5.90); Red Cell Distribution Width 13.9 % (11.8-14.3); White Blood Cell 5.8 10^3/uL (4.4-10.8)
[2020-12-11 04:15] LABS: BUN/Creatinine Ratio 26.2; Calcium 8.6 mg/dL (8.5-10.1); Potassium 4.1 mmol/L (3.5-5.1)
[2020-12-11] MEDS: MIDAZOLAM DRIP 50 mg/50mL 50 ML IV SCH ×3 (04:15→19:48)
[2020-12-11] MEDS: PHENYLEPHRINE INJ 40 MG in SODIUM CHL 0.9% 246 ML IV SCH (09:10)
[2020-12-11] MEDS: NOREPINEPHRINE 8 MG/250ML KIT 250 ML IV SCH (09:30)
[2020-12-11] MEDS ORDERED: PANTOPRAZOLE 40 MG TAB PO SCH (10:00)
[2020-12-11] MEDS: LABETALOL HCL 200 MG TAB PO SCH ×2 (10:00→22:00)
[2020-12-11] MEDS: buPROPion HCL 75 MG TAB PO SCH ×2 (10:00→22:20)
[2020-12-11] MEDS: levoFLOXacin 750MG 150 ML IV SCH (11:32)
[2020-12-11] MEDS: FUROSEMIDE 40 MG/4 ML VIAL IV SCH (11:32)
[2020-12-11] MEDS: CHOLECALCIFEROL (VITD3) 1,000UNIT=25mCg TAB PO SCH (11:33)
[2020-12-11] MEDS: PANTOPRAZOLE 40 MG/10 ML VIAL INJ IV SCH (11:33)
[2020-12-11] MEDS: ENOXAPARIN SOD 80 MG/0.8ML SYRINGE SC SCH ×2 (11:34→22:19)
[2020-12-11] MEDS: FOLIC ACID 1 MG, MULTIPLE VITAMIN 10 ML, MAGNESIUM SULF SDV 50% 8 MEQ, THIAMINE INJ 100... INJ SCH ×5 (12:00)
[2020-12-11] MEDS: LACTULOSE 20Gm/30ML SOLN PO SCH ×3 (12:00→23:52)
[2020-12-11] MEDS: fentaNYL Drip 2500mCg/250mlNS 250 ML IV SCH (14:56)
[2020-12-11] MEDS: DOPamine 1600MCG/ML D5W 250 ML IV SCH (18:00)
[2020-12-11] MEDS: traZODone HCL 50 MG TAB PO SCH (22:20)
[2020-12-12] VITALS (87 sets, daily range): BP systolic 67–172; BP diastolic 31–82
[2020-12-12] MEDS: PHENYLEPHRINE INJ 40 MG in SODIUM CHL 0.9% 246 ML IV SCH ×2 (01:50→18:30)
[2020-12-12] MEDS: MIDAZOLAM DRIP 50 mg/50mL 50 ML IV SCH ×2 (02:51→11:17)
[2020-12-12 04:04] LABS: Basophils # (auto) 0 10 ^3/uL (0-0.2); Basophils % (auto) 0.7 % (0.0-2.0); Eosinophils # (auto) 0.2 10 ^3/uL (0-0.8); Eosinophils % (auto) 3.6 % (0.0-7.0); Hemoglobin 10.9 g/dL (13.5-17.5); Lymphocytes # (auto) 1.1 10 ^3/uL (0.4-5.4); Mean Corpuscular Hemoglobin 30.8 pg (28.0-32.0); Mean Corpuscular Hgb Conc. 33.9 g/dL (32.0-36.0); Mean Corpuscular Volume 90.8 fL (80.0-100.0); Monocytes # (auto) 0.8 10 ^3/uL (0-1.3); Monocytes % (auto) 13.5 % (0.0-12.0); Neutrophils # (auto) 3.9 10 ^3/uL (1.6-8.6); Neutrophils % (auto) 64.2 % (37.0-80.0); Red Blood Cells 3.53 10^6/uL (4.5-5.90); Red Cell Distribution Width 13.6 % (11.8-14.3); White Blood Cell 6.1 10^3/uL (4.4-10.8)
[2020-12-12 04:16] LABS: INR 1.06 (0.9-1.15); Partial Thromboplastin Time 32.2 sec (23.0-31.2)
[2020-12-12 04:19] LABS: Albumin 2.1 g/dL (3.4-5.0); Calcium 8.2 mg/dL (8.5-10.1)
[2020-12-12 04:29] LABS: BUN/Creatinine Ratio 24.6; Bilirubin, Total 0.3 mg/dL (0.2-1.0); Total Protein 5.9 g/dL (6.4-8.2)
[2020-12-12] MEDS: LACTULOSE 20Gm/30ML SOLN PO SCH ×3 (06:00→18:00)
[2020-12-12] MEDS: PROPOFOL 100 ML IV SCH (06:11)
[2020-12-12] MEDS: NOREPINEPHRINE 8 MG/250ML KIT 250 ML IV SCH (09:30)
[2020-12-12] MEDS: CHOLECALCIFEROL (VITD3) 1,000UNIT=25mCg TAB PO SCH (10:00)
[2020-12-12] MEDS: ENOXAPARIN SOD 80 MG/0.8ML SYRINGE SC SCH (10:00)
[2020-12-12] MEDS: LABETALOL HCL 200 MG TAB PO SCH ×2 (10:00→22:00)
[2020-12-12] MEDS: buPROPion HCL 75 MG TAB PO SCH ×2 (10:00→22:00)
[2020-12-12] MEDS: fentaNYL Drip 2500mCg/250mlNS 250 ML IV SCH (11:16)
[2020-12-12] MEDS: PANTOPRAZOLE 40 MG/10 ML VIAL INJ IV SCH (11:17)
[2020-12-12] MEDS: FUROSEMIDE 40 MG/4 ML VIAL IV SCH (11:17)
[2020-12-12] MEDS: levoFLOXacin 750MG 150 ML IV SCH (12:31)
[2020-12-12] MEDS: FOLIC ACID 1 MG, MULTIPLE VITAMIN 10 ML, MAGNESIUM SULF SDV 50% 8 MEQ, THIAMINE INJ 100... INJ SCH ×5 (12:32)
[2020-12-12] MEDS: DOPamine 1600MCG/ML D5W 250 ML IV SCH (13:36)
[2020-12-12] MEDS ORDERED: LIDOCAINE W/ EPINEPHRINE 1% 20ML VIAL ONE (13:46)
[2020-12-12] MEDS ORDERED: fentaNYL CITRATE 100 MCG/2 ML VL ONE (14:16)
[2020-12-12] MEDS ORDERED: MIDAZOLAM HCL 1MG/1ML-2 ML VIAL ONE ×2 (14:16→14:53)
[2020-12-12] MEDS ORDERED: HYDROmorphone HCL 2 MG/ML VL ONE ×2 (14:16→14:44)
[2020-12-12] MEDS ORDERED: DexAMETHasone SOD PHOS 10MG/1ML VIAL INJ ONE (14:33)
[2020-12-12] MEDS ORDERED: PROPOFOL 10 MG/ML 20 ML IV ONE (14:39)
[2020-12-12] MEDS: traZODone HCL 50 MG TAB PO SCH (22:00)
[2020-12-13] VITALS (79 sets, daily range): BP systolic 68–198; BP diastolic 30–110
[2020-12-13] MEDS: ENOXAPARIN SOD 80 MG/0.8ML SYRINGE SC SCH ×3 (01:00→22:00)
[2020-12-13] MEDS: LACTULOSE 20Gm/30ML SOLN PO SCH ×4 (06:00→18:00)
[2020-12-13] MEDS: DOPamine 1600MCG/ML D5W 250 ML IV SCH (08:57)
[2020-12-13] MEDS: NOREPINEPHRINE 8 MG/250ML KIT 250 ML IV SCH (08:57)
[2020-12-13] MEDS: MIDAZOLAM DRIP 50 mg/50mL 50 ML IV SCH ×2 (09:05→13:55)
[2020-12-13] MEDS: PROPOFOL 100 ML IV SCH (09:05)
[2020-12-13] MEDS: LABETALOL HCL 200 MG TAB PO SCH ×2 (10:00→22:00)
[2020-12-13] MEDS: CHOLECALCIFEROL (VITD3) 1,000UNIT=25mCg TAB PO SCH (10:00)
[2020-12-13] MEDS: buPROPion HCL 75 MG TAB PO SCH ×2 (10:00→22:00)
[2020-12-13] MEDS: PANTOPRAZOLE 40 MG/10 ML VIAL INJ IV SCH (10:21)
[2020-12-13] MEDS: levoFLOXacin 750MG 150 ML IV SCH (10:24)
[2020-12-13] MEDS: FUROSEMIDE 40 MG/4 ML VIAL IV SCH (10:24)
[2020-12-13] MEDS: PHENYLEPHRINE INJ 40 MG in SODIUM CHL 0.9% 246 ML IV SCH (11:10)
[2020-12-13] MEDS ORDERED: fentaNYL Drip 2500mCg/250mlNS 250 ML IV ONE (11:42)
[2020-12-13] MEDS ORDERED: chlordiazePOXIDE HCL 5 MG CAP PO PRN (12:30)
[2020-12-13] MEDS ORDERED: METOPROLOL TARTRATE 1MG/1ML-5ML VIAL IV PRN (12:30)
[2020-12-13] MEDS: LABETALOL HCL 5 MG/ML 4ML SYRINGE IV PRN ×3 (12:45→19:54)
[2020-12-13] MEDS: fentaNYL Drip 2500mCg/250mlNS 250 ML IV SCH (13:30)
[2020-12-13] MEDS: traZODone HCL 50 MG TAB PO SCH (22:00)
[2020-12-14] VITALS (51 sets, daily range): BP systolic 64–218; BP diastolic 30–129
[2020-12-14] MEDS: PHENYLEPHRINE INJ 40 MG in SODIUM CHL 0.9% 246 ML IV SCH (03:50)
[2020-12-14] MEDS: DOPamine 1600MCG/ML D5W 250 ML IV SCH (04:48)
[2020-12-14] MEDS: LACTULOSE 20Gm/30ML SOLN PO SCH ×3 (06:00→12:15)
[2020-12-14 06:18] LABS: Eosinophils # (auto) 0 10 ^3/uL (0-0.8); Lymphocytes # (auto) 1.4 10 ^3/uL (0.4-5.4)
[2020-12-14 06:21] LABS: Basophils # (auto) 0.1 10 ^3/uL (0-0.2); Eosinophils % (auto) 0.7 % (0.0-7.0); Hematocrit 33.5 % (41.0-53.0); Hemoglobin 11.6 g/dL (13.5-17.5); Lymphocytes % (auto) 20.9 % (10.0-50.0); Mean Corpuscular Hemoglobin 31.1 pg (28.0-32.0); Mean Corpuscular Hgb Conc. 34.5 g/dL (32.0-36.0); Monocytes # (auto) 0.9 10 ^3/uL (0-1.3); Monocytes % (auto) 14.1 % (0.0-12.0); Neutrophils # (auto) 4.2 10 ^3/uL (1.6-8.6); Neutrophils % (auto) 63.3 % (37.0-80.0); Red Blood Cells 3.72 10^6/uL (4.5-5.90); Red Cell Distribution Width 13.6 % (11.8-14.3); White Blood Cell 6.6 10^3/uL (4.4-10.8)
[2020-12-14 06:51] LABS: Calcium 9.1 mg/dL (8.5-10.1); Potassium 3.8 mmol/L (3.5-5.1)
[2020-12-14 06:52] LABS: BUN/Creatinine Ratio 30.9
[2020-12-14] MEDS: NOREPINEPHRINE 8 MG/250ML KIT 250 ML IV SCH (09:30)
[2020-12-14] MEDS: LABETALOL HCL 5 MG/ML 4ML SYRINGE IV PRN (09:35)
[2020-12-14] MEDS: FUROSEMIDE 40 MG/4 ML VIAL IV SCH (09:36)
[2020-12-14] MEDS: PANTOPRAZOLE 40 MG/10 ML VIAL INJ IV SCH (09:36)
[2020-12-14] MEDS: ENOXAPARIN SOD 80 MG/0.8ML SYRINGE SC SCH (09:36)
[2020-12-14] MEDS ORDERED: PROPOFOL 100 ML IV SCH (10:00)
[2020-12-14] MEDS: LABETALOL HCL 200 MG TAB PO SCH (10:00)
[2020-12-14] MEDS: buPROPion HCL 75 MG TAB PO SCH (10:40)
[2020-12-14] MEDS: CHOLECALCIFEROL (VITD3) 1,000UNIT=25mCg TAB PO SCH (10:41)
[2020-12-14] MEDS: fentaNYL Drip 2500mCg/250mlNS 250 ML IV SCH (13:32)
== END 2020-12-14 20:50 | disposition short-term general hospital (02) | DRG 4 ==
LOC: EDBD 09:31 → EDUNIT# 09:31 → ER 09:31 → TELE 22:46 → ICU WEST 11-24 02:00
PROVIDERS: ADMIT Nurse Practitioner; ATTEND Internal Medicine
PROC: 5A1955Z Respiratory Ventilation, Greater than 96 Consecutive Hours (ICD-10-PCS; 2020-11-23)
PROC: 0BH17EZ Insertion of Endotracheal Airway into Trachea, Via Natural or Artificial Opening (ICD-10-PCS; 2020-11-23)
PROC: 06HY33Z Insertion of Infusion Device into Lower Vein, Percutaneous Approach (ICD-10-PCS; 2020-11-24)
PROC: 05HY33Z Insertion of Infusion Device into Upper Vein, Percutaneous Approach (ICD-10-PCS; 2020-11-24)
PROC: 0B110F4 Bypass Trachea to Cutaneous with Tracheostomy Device, Open Approach (ICD-10-PCS; 2020-12-12)
PROC: 0DJ08ZZ Inspection of Upper Intestinal Tract, Via Natural or Artificial Opening Endoscopic (ICD-10-PCS; principal; 2020-12-12 14:15)
DX: A41.9 Sepsis, unspecified organism (principal); R65.21 Severe sepsis with septic shock; R57.0 Cardiogenic shock; J69.0 Pneumonitis due to inhalation of food and vomit; N17.0 Acute kidney failure with tubular necrosis; I26.99 Other pulmonary embolism without acute cor pulmonale; J96.21 Acute and chronic respiratory failure with hypoxia; I50.23 Acute on chronic systolic (congestive) heart failure; G92 Toxic encephalopathy; E44.0 Moderate protein-calorie malnutrition; I13.0 Hypertensive heart and chronic kidney disease with heart failure and stage 1 through stage 4 chronic kidney disease, or unspecified chronic kidney disease; I42.6 Alcoholic cardiomyopathy; Z99.11 Dependence on respirator [ventilator] status; F10.231 Alcohol dependence with withdrawal delirium; I82.622 Acute embolism and thrombosis of deep veins of left upper extremity; J98.11 Atelectasis; N18.9 Chronic kidney disease, unspecified; E87.6 Hypokalemia; J43.9 Emphysema, unspecified; D64.9 Anemia, unspecified; K70.10 Alcoholic hepatitis without ascites; R13.10 Dysphagia, unspecified; R00.1 Bradycardia, unspecified; Z20.822 Contact with and (suspected) exposure to COVID-19; Y92.89 Other specified places as the place of occurrence of the external cause; Z90.3 Acquired absence of stomach [part of]; Z68.26 Body mass index [BMI] 26.0-26.9, adult; T51.0X1A Toxic effect of ethanol, accidental (unintentional), initial encounter
CPT/HCPCS: 36415; 36600; 70450; 71045; 71275; 72125; 74018; 76775; 80048; 80053; 80061; 80307; 80320; 81001; 82306; 82533; 82550; 82570; 82728; 82805; 82962; 83036; 83605; 83615; 83735; 83874; 83880; 84100; 84156; 84300; 84443; 84484; 85007; 85025; 85027; 85049; 85379; 85610; 85730; 87040; 87070; 87077; 87081; 87186; 87205; 87426; 93005; 93306; 93971; 94002; 94003; 94640; 96361; 96365; 96375; 99291; A4605; C9113; G0378; J0696; J1100; J1956; J2001; J2185; J2250; J2704; J3480; J3490; J7060; P9047; Q9956